=== PATIENT | female | born 1985 | race Caucasian/White ===

== ENCOUNTER 2019-01-01 20:39 | Emergency (ER) | payer MEDICAID ==
[~2019-01-01] VITALS: Ht 152.4 cm; Wt 60.8 kg
[2019-01-01 20:52] VITALS: Ht 152.4 cm; Wt 60.8 kg
[2019-01-01] MEDS ORDERED: ACETAMINOPHEN 325 MG TAB PO STA (21:17)
[2019-01-01 23:21] VITALS: BP 110/66; PULSE 71; RESP 20
== END 2019-01-01 23:25 | disposition home or self-care (01) ==
LOC: FTE 20:39
DX: O03.9 Complete or unspecified spontaneous abortion without complication (principal); R10.2 Pelvic and perineal pain
CPT/HCPCS: 36415; 76801; 76817; 81001; 84702; 85025; 86900; 86901; 87086; Z7502; Z7610